=== PATIENT | male | born 1995 | race Caucasian/White ===

== ENCOUNTER 2019-02-14 05:40 | Emergency (ER) | payer OTHER ==
[2019-02-14] MEDS ORDERED: NORMAL SALINE 1000 ML 1,000 ML IV ONE (06:42)
[2019-02-14] MEDS ORDERED: LORAZEPAM INJ 2 MG/1 ML VIAL IV ONE (06:42)
[2019-02-14 06:57] LABS: ABSOLUTE LYMPHOCYTES (AUTO) 1.1 10^3/uL (0.5-4.7); ABSOLUTE MONOCYTES (AUTO) 0.6 10^3/uL (0.1-1.4); ABSOLUTE NEUT (AUTO) 9.6 10^3/uL (1.7-8.2); BASOPHILS % (AUTO) 0.4 % (0-2); HEMATOCRIT 46.4 % (37.9-51.0); HEMOGLOBIN 16.1 g/dL (13.5-17.0); LYMPHOCYTES % (AUTO) 9.8 % (13-45); MEAN CORPUSCULAR HEMOGLOBIN 32.6 pg (27.0-33.4); MEAN CORPUSCULAR HGB CONC 34.7 g/dL (32.0-36.0); MEAN CORPUSCULAR VOLUME 94 fl (80-97); MONOCYTES % (AUTO) 5.4 % (3-13); PLATELET COUNT 247 10^3/uL (150-450); RED BLOOD COUNT 4.95 10^6/uL (4.35-5.55); RED CELL DISTRIBUTION WIDTH 12.7 % (11.5-14.0); SEGMENTED NEUTROPHILS % (AUTO) 84.4 % (42-78); TOTAL CELLS COUNTED % (AUTO) 100 %; WHITE BLOOD COUNT 11.4 10^3/uL (4.0-10.5)
[2019-02-14 07:13] LABS: ALBUMIN 5.1 g/dL (3.5-5.0); ALKALINE PHOSPHATASE 119 U/L (38-126); ANION GAP 10 (5-19); ASPARTATE AMINO TRANSFERASE 39 U/L (17-59); BILIRUBIN,DIRECT 0.2 mg/dL (0.0-0.4); BILIRUBIN,TOTAL 0.6 mg/dL (0.2-1.3); BLOOD UREA NITROGEN 10 mg/dL (7-20); CALCIUM 10.2 mg/dL (8.4-10.2); CARBON DIOXIDE 22 mmol/L (22-30); CHLORIDE 115 mmol/L (98-107); CREATINE KINASE 466 U/L (55-170); GLUCOSE 105 mg/dL (75-110); POTASSIUM 3.8 mmol/L (3.6-5.0); TOTAL PROTEIN 8.4 g/dL (6.3-8.2)
[2019-02-14 07:15] LABS: ACETAMINOPHEN < 10 ug/mL (10-30); ALCOHOL < 10 mg/dL (NONE DETECTED); SALICYLATE < 1.0 mg/dL (2.0-20.0)
[2019-02-14] MEDS ORDERED: RINGERS SOLUTION,LACTATED 1,000 ML IV ONE ×2 (07:41→09:46)
[2019-02-14] MEDS ORDERED: DEXTROSE 5%-LACTATED RINGERS 1,000 ML IV ONE (08:13)
[2019-02-14 10:03] LABS: APPEARANCE,URINE CLEAR; BILIRUBIN,URINE NEGATIVE (NEGATIVE); COLOR,URINE YELLOW; GLUCOSE, URINE 50 mg/dL (NEGATIVE); KETONES,URINE NEGATIVE (NEGATIVE); LEUKOCYTE ESTERASE,URINE NEGATIVE (NEGATIVE); NITRITE,URINE NEGATIVE (NEGATIVE); PROTEIN,URINE 30 mg/dL (NEGATIVE); URINE SPECIFIC GRAVITY 1.016; UROBILINOGEN,URINE NEGATIVE mg/dL (<2.0)
[2019-02-14 10:23] LABS: URINE AMPHETAMINES SCREEN NEGATIVE; URINE BARBITURATES SCREEN NEGATIVE; URINE BENZODIAZEPINES SCREEN NEGATIVE; URINE COCAINE SCREEN NEGATIVE; URINE METHADONE SCREEN NEGATIVE
[2019-02-14 10:27] LABS: URINE MARIJUANA (THC) SCREEN UNCONFIRMED POSITIVE; URINE PHENCYCLIDINE SCREEN UNCONFIRMED POSITIVE
--- NOTE | 2019-02-14 11:47 | EKG REPORT ---
SEVERITY:- OTHERWISE NORMAL ECG - SINUS TACHYCARDIA : Confirmed by: Smitha Brumfield MD 14-Feb-2019 11:45:24
--- NOTE | 2019-02-14 13:31 | PSYCHOLOGICAL NOTE ---
Psych Note - Psych Note Date seen by psych provider: 02/14/19 Time seen by psych provider: 09:30 Psych Note: Reason for consult: Altered mental status Consent permissions: Refused This 23-year-old male patient brought to emergency room by EMS after being found wandering around the [facility] and [place] trying to break into different peoples rooms. The local police found the patient to be acting strangely and appeared to be high on drugs. Patient admitted to taking 32 Coricidin cough and cold pills to get high. Patient reports that he was doing triple C's and attempt to get high; he does this "occasionally" He denies any thoughts of wanting to hurt himself or others. He reports he does not remember attempting to get into other peoples rooms at the hotel however feels it may be because he thought he was trying to get into his room. He confirms he has mental health diagnosis and substance abuse. He states he has been inpatient psychiatric treatment in [place] in [facility]. He denies taking medications prescribed him because he does not like the way they make them feel. Clinician attempted to contact lens assistant to notify/next of kin noted in patient's chart; phone number not working. Patient is alert and orientated to person, place, time and circumstance. Mood is euthymic with congruent affect. Patient is no longer demonstrating effects of being under the influence. Patient denies suicidal homicidal ideation. Delusions are absent behaviors congruent with an intact reality based presentation ie organized and linear thought process. Eye contact is well- maintained. Conversational speech is within normal rate, tone and prosody. Intellectual abilities appear to be within the average. Attention and concentration are good. Insight, judgment, impulse control is fair. Substance abuse Bipolar per history provided by patient No medication recommendations at this time Impression\\plan: Patient is recommended for rescind of IVC and is cleared from acute psychiatric services. Patient is no longer demonstrating being under the influence. Patient is able to engage in organized linear conversations. Patient does have a history of using "triple C's" and attempt to get high. He reports that he is not interested in taking his medications because it makes him feel like a "zombie." Patient was highly encouraged to be compliant with his mental health treatment and to seek out substance abuse treatment. Patient declines assistance on detox however is willing to take information. Patient also requests Street sheet of local [facility]. Dr. Anand was consulted to care management of this patient; attending physicians in agreement with recommendations and disposition.
[2019-02-14 14:35] VITALS: BP 153/102
--- NOTE | 2019-02-15 08:07 | ER Document Report ---
Entered by MARILEE DENSON SCRIBE 02/14/19 0816 Acting as scribe for:TOMMIE SORIA MD ED Psych Disorder / Suicide <VIC GODDARD - Last Filed: 02/14/19 13:50> - General Mode of Arrival: Medic Information source: Patient, Emergency Med Personnel TRAVEL OUTSIDE OF THE [place] IN LAST 30 DAYS: No <TOMMIE SORIA - Last Filed: 02/14/19 14:18> - General Chief Complaint: Possible Overdose Stated Complaint: POSSIBLE OVERDOSE Time Seen by Provider: 02/14/19 06:24 Primary Care Provider: [facility] [Outside] - Follow up as needed Notes: This 23-year-old male patient brought to emergency room by EMS after being found wandering around the [facility] and [place] trying to break into different peoples rooms. The local police found the patient to be acting strangely and appeared to be high on drugs. Patient admitted to taking 32 Coricidin cough and cold pills to get high. He has done this before. He denies suicidal or homicidal ideations. He reports he is staying at the hotel, he is from [place]. 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 He is noted to be diaphoretic, tachycardic, tachypneic. He is pacing the room. He is wide awake and has trouble concentrating. He continually tells the nurses he wants to leave and is not cooperating with him. I told the patient that he was brought here due to his behavior, but otherwise was going to be arrested and put in detention, so it would be in his best interest to cooperate with us and let us evaluate him and treat him for any serious health problems that may be occurring due to the overdose. He does seem agreeable to this, but IVC paperwork is filled out as he is a flight risk at this time. (TOMMIE SORIA) - Related Data Allergies/Adverse Reactions: No Known Allergies Allergy (Verified 02/14/19 06:01) Past Medical History - General Information source: Patient - Social History Smoking Status: Current Every Day Smoker Cigarette use (# per day): Yes Chew tobacco use (# tins/day): No Smoking Education Provided: No Frequency of alcohol use: Occasional Drug Abuse: Marijuana, Other - Kovb-cvs-vlphleo cough and cold medications Lives with: Other Family History: Reviewed & Not Pertinent Patient has suicidal ideation: No Patient has homicidal ideation: No Psychiatric Medical History: Reports: Hx Bipolar Disorder - Is supposed to take Risperdal and Depakote Surgical Hx: Negative <TOMMIE SORIA - Last Filed: 02/14/19 14:18> Review of Systems - Review of Systems -: Yes ROS unobtainable due to patient's medical condition <TOMMIE SORIA - Last Filed: 02/14/19 14:18> Physical Exam - Vital signs Interpretation: Hypertensive, Tachycardic, Tachypneic - General General appearance: Alert, Anxious In distress: Mild - HEENT Head: Normocephalic, Atraumatic Eyes: Normal Pupils: PERRL Mucous membranes: Dry - Patient's mouth is a little dry. Neck: Normal - Respiratory Respiratory status: No respiratory distress, Tachypnea Chest status: Nontender Breath sounds: Normal Chest palpation: Normal - Cardiovascular Rhythm: Regular, Tachycardia Heart sounds: Normal auscultation Murmur: No - Abdominal Inspection: Normal - Back Back: Normal - Extremities General upper extremity: Normal inspection General lower extremity: Normal inspection - Neurological Neuro grossly intact: Yes - Psychological Associated symptoms: Manic <TOMMIE SORIA - Last Filed: 02/14/19 14:18> - Vital signs Vitals: Resp Pulse Ox 30 H 96 02/14/19 05:52 02/14/19 05:52 - General Notes: Patient is obviously high on stimulant type medications and is diaphoretic, tachycardic, hypertensive. (TOMMIE SORIA) Course - Laboratory Result Diagrams: 02/14/19 06:45 02/14/19 06:45 <VIC GODDARD - Last Filed: 02/14/19 13:50> - Laboratory Result Diagrams: 02/14/19 06:45 02/14/19 06:45 - EKG Interpretation by Mo EKG shows normal: Sinus rhythm, Richards, Intervals, QRS Complexes, ST-T Waves Rate: Tachycardia - 133 <TOMMIE SORIA - Last Filed: 02/14/19 14:18> - Re-evaluation Re-evalutation: 02/14/19 10:48 Urine drug screen is positive for opiates, marijuana, and PCP (which means dextromethorphan in this patient's case). (TOMMIE SORIA) - Vital Signs Vital signs: Temp Pulse Resp BP Pulse Ox 99.4 F 138 H 18 137/92 H 98 02/14/19 06:01 02/14/19 06:01 02/14/19 12:01 02/14/19 12:00 02/14/19 11:49 - Laboratory Laboratory results interpreted by me: 02/14/19 02/14/19 02/14/19 06:45 06:45 06:45 WBC 11.4 H Lymph % (Auto) 9.8 L Absolute Neuts (auto) 9.6 H Seg Neutrophils % 84.4 H Sodium 146.5 H Chloride 115 H Creatine Kinase 466 H Total Protein 8.4 H Albumin 5.1 H Urine Protein Urine Glucose (UA) Salicylates < 1.0 L Acetaminophen < 10 L Valproic Acid < 10.0 L 02/14/19 09:45 WBC Lymph % (Auto) Absolute Neuts (auto) Seg Neutrophils % Sodium Chloride Creatine Kinase Total Protein Albumin Urine Protein 30 H Urine Glucose (UA) 50 H Salicylates Acetaminophen Valproic Acid Discharge <VIC GODDARD - Last Filed: 02/14/19 13:50> <TOMMIE SORIA - Last Filed: 02/14/19 14:18> - Discharge Clinical Impression: Overdose of common cold drug Qualifiers: Encounter type: initial encounter Injury intent: undetermined intent Qualified Code(s): T48.5X4A - Poisoning by other [id number] drugs, undetermined, initial encounter Dextromethorphan overdose Qualifiers: Encounter type: initial encounter Injury intent: undetermined intent Qualified Code(s): T48.3X4A - Poisoning by antitussives, undetermined, initial encounter Condition: Stable Disposition: HOME, SELF-CARE Additional Instructions: You have been evaluated both medical and behavioral teams have been deemed appropriate for discharge. You are highly encouraged to refrain from using cough medications in an attempt to get high. You are also encouraged to be compliant on your mental health treatment and to seek substance abuse treatment. You have been provided detox facility resources if you change your mind. You have also been provided the local Street sheet which includes mental health, substance abuse and economic resources. AT ANY TIME, IF YOUR SYMPTOMS CHANGE SIGNIFICANTLY OR WORSEN OR YOU DEVELOP NEW SYMPTOMS, RETURN TO THE EMERGENCY DEPARTMENT IMMEDIATELY FOR RE-EVALUATION. Referrals: [facility] [Outside] - Follow up as needed Scribe Attestation: 02/14/19 08:27 I personally performed the services described in the documentation, reviewed and edited the documentation which was dictated to the scribe in my presence, and it accurately records my words and actions. (TOMMIE SORIA) I personally performed the services described in the documentation, reviewed and edited the documentation which was dictated to the scribe in my presence, and it accurately records my words and actions.
== END 2019-02-14 14:35 | disposition home or self-care (01) ==
LOC: ER 05:40
DX: T48.5X4A Poisoning by other anti-common-cold drugs, undetermined, initial encounter (principal); T48.3X4A Poisoning by antitussives, undetermined, initial encounter; Y92.59 Other trade areas as the place of occurrence of the external cause; R61 Generalized hyperhidrosis; R00.0 Tachycardia, unspecified; R06.82 Tachypnea, not elsewhere classified; I10 Essential (primary) hypertension; F12.10 Cannabis abuse, uncomplicated; F17.210 Nicotine dependence, cigarettes, uncomplicated
CPT/HCPCS: 93005; 99285; 96361; 96374; 36415; 80307 ×4; 82550; 83735; 85025; 80053; 81001; 84484; 80164; 93010; J2060; J7121; J7030; J7120